=== PATIENT | female | born 1950 | race Caucasian/White ===

== ENCOUNTER → 2020-10-07 | Outpatient (CLI) | payer OTHER | LOC: SJCVC 14:19 | PROVIDERS: ATTEND Internal Medicine | DX: Z13.220 Encounter for screening for lipoid disorders (principal); R94.31 Abnormal electrocardiogram [ECG] [EKG]; I44.30 Unspecified atrioventricular block; I48.92 Unspecified atrial flutter; I48.0 Paroxysmal atrial fibrillation; I10 Essential (primary) hypertension; J45.909 Unspecified asthma, uncomplicated; E11.9 Type 2 diabetes mellitus without complications; E78.5 Hyperlipidemia, unspecified; M19.90 Unspecified osteoarthritis, unspecified site; F17.210 Nicotine dependence, cigarettes, uncomplicated; Z79.4 Long term (current) use of insulin ==

== ENCOUNTER → 2020-10-20 | Outpatient (CLI) | payer OTHER ==
[~2020-10-20] MED LIST: ADDERALL 20 MG20 M1 PO; ASA81BEC PO; AZELASTINE205.5 MCG/ NARES; CARVEDILOL12.5 MG PO; COZAAR 25 MG TA25 M2 PO; CYMBALTA60 MG PO; DIAZEPAM 5 MG5 M1 PO; HYDROCODON-ACE1 EAC7 PO; INSULIN PEN NE1 EAC1 INJECTION; SYMBICORT160 MCG/4. INH; ZETIA10 MG PO
== END ==
LOC: SJCVCIMAG 06:38
PROVIDERS: ATTEND Internal Medicine
DX: I08.0 Rheumatic disorders of both mitral and aortic valves (principal); I48.91 Unspecified atrial fibrillation; R93.1 Abnormal findings on diagnostic imaging of heart and coronary circulation; I10 Essential (primary) hypertension; E11.9 Type 2 diabetes mellitus without complications; E78.2 Mixed hyperlipidemia; M19.90 Unspecified osteoarthritis, unspecified site; J45.909 Unspecified asthma, uncomplicated; F17.210 Nicotine dependence, cigarettes, uncomplicated; Z68.38 Body mass index [BMI] 38.0-38.9, adult; Z79.4 Long term (current) use of insulin; Z96.651 Presence of right artificial knee joint; Z79.82 Long term (current) use of aspirin; Z79.899 Other long term (current) drug therapy; Z82.49 Family history of ischemic heart disease and other diseases of the circulatory system

== ENCOUNTER → 2020-10-28 | Outpatient (CLI) | payer OTHER ==
[~2020-10-28] VITALS: Ht 165.1 cm; Wt 105.2 kg
[2020-10-28 07:13] VITALS: BP 103/65
[2020-10-28 07:34] LABS: HEMATOCRIT 43.6 % (37.0-47.0); HEMOGLOBIN 14.3 gm/dL (12.0-15.0); MCH 29.6 pg (26.0-34.0); MCHC 32.8 g/dL (28.0-37.0); MCV 90.4 fL (80.0-100.0); RBC 4.82 mil/uL (4.20-5.00); RDW 14.3 % (10.5-14.5)
[2020-10-28 07:42] LABS: CALCIUM 8.9 mg/dL (8.5-10.1); CREATININE 0.8 mg/dL (0.6-1.0)
--- NOTE | 2020-10-28 09:09 | EKG ---
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[facility] 1950 Requested By: Charles Olivia Order Number: [id number] MD: Go Wallace Measurements Intervals Steger Rate: 92 P: MI: QRS: 0 QRSD: 91 T: 53 QT: 368 QTc: 456 Interpretive Statements Atrial fibrillation Low voltage, precordial leads Nonspecific T wave abnormality Baseline wander in lead(s) V3 No previous ECG available for comparison Electronically Signed On 10-28-2020 9:09:00 CDT by Go Wallace [email or web address] <ELECTRONICALLY SIGNED> By: Go Wallace MD, [facility] 10/28/20908 4 Go Wallace MD, FACC /EPI
--- NOTE | 2020-10-28 18:02 | CATHLAB ---
[facility] [place] [address] INVASIVE PROCEDURE REPORT Name: MEG DUMONT Room #: REG RADHA DaleyChelle#: [id number] Admission: 10/28/20 Attend Phys: Charles Olivia MD, Discharge: Date of : 48 Report #: [id number] THIS REPORT FOR: cc: [place] Domínguez MD, T.J. MD Mancuso, Gerald M. MD [facility] ~ APPROVED REPORT Study performed: 10/28/2020 07:43:43 Patient Details Patient Status: Out-Patient Room #: The patient is a 70 year-old female Event Personnel Charles Olivia Kiln Puller, Jovanni Turcios RN RN, Chastity Arellano RTR, Robert Romano Roberta Monitor Procedures Performed Art Access - R femoral artery* Left Heart Cath w/or w/o Coronaries [id number] [facility] Aortogram Abdominal Peripheral Angio 776543 Hemostasis w/ Mynx 49520 Initial Mod Sed Same Phys/QHP Gr5y 410406 60820 Mod Sed Same Phys/QHP Ea 669654 Indication Chest pain Procedure Narrative The Right Groin^ was infiltrated with 1% Lidocaine subcutaneous anesthesia. A PINNACLE 6FR Sheath #[id number] sheath was inserted into the RFA^. Coronary angiography was performed using coronary diagnostic catheters. The right coronary system was accessed and visualized with a JR4 catheter. The left coronary system was accessed and visualized with a JL4 catheter. The left ventricle was accessed and visualized with a STR PIG catheter. The patient tolerated the procedure well and there were no complications associated with the procedure. There was no hematoma. Intraoperative Conscious Sedation Sedation start time: 838 Case end Time: 904 Fentanyl 50 mcg Versed 1 mg Fluoro Time: 1.[address] [facility] [place] [address] INVASIVE PROCEDURE REPORT Name: MEG DUMONT [facility] [id number] Admission: 10/28/20 Attend Phys: Charles Olivia, Discharge: Date of : 48 Report #: [id number] Dose: DAP 7968.00 cGycm2 907 mGy Contrast Type and Amount: Omnipaque 85 ml Hemodynamics The aortic pressure is 114/69 mmHg with a mean of 88 mmHg. The left ventricular pressure is 106/10 mmHg with a mean of mmHg. The left ventricular end diastolic pressure is 24 mmHg. Conclusion #1. Normal left ventricular size and systolic function EF 60%. #2 abdominal aortogram revealed mild aortic plaquing no aneurysm formation brisk flow. #3 left main with mild disease giving rise to LAD and circumflex. #4 LAD extends to the apex with mild irregularity small in caliber distally. Diffusely diseased distally. #5 circumflex OM nondominant with mild distal disease. #6 dominant right coronary mildly ectatic no occlusive disease. Giving rise to PDA DEBO which are patent. Recommendations plan: Continue aggressive risk factor modification. No indication for coronary intervention. Follow-up will be arranged. <ELECTRONICALLY SIGNED> By: Charles Olivia MD, [facility] 10/28/201801 01 01 Charles Olivia MD, FAC /INF
== END | disposition home or self-care (01) ==
LOC: CATH 06:24
PROVIDERS: ATTEND Internal Medicine Cardiovascular Disease
DX: R07.9 Chest pain, unspecified (principal); I25.10 Atherosclerotic heart disease of native coronary artery without angina pectoris; I70.0 Atherosclerosis of aorta; I10 Essential (primary) hypertension; E78.5 Hyperlipidemia, unspecified; E11.9 Type 2 diabetes mellitus without complications; J45.909 Unspecified asthma, uncomplicated; Z98.890 Other specified postprocedural states; Z79.899 Other long term (current) drug therapy; Z87.891 Personal history of nicotine dependence; Z79.4 Long term (current) use of insulin; Z88.8 Allergy status to other drugs, medicaments and biological substances